=== PATIENT | male | born 1980 | race Caucasian/White ===

== ENCOUNTER 2019-03-30 14:04 | Emergency (ER) | payer MEDICARE, MEDICAID ==
[~2019-03-30] VITALS: Ht 170.2 cm; Wt 98.2 kg
[~2019-03-30 14:04] MED LIST: ARIP5TAB14 PO; ATEN50TA8 PO; FAMO40TA73 PO; LISI40TA4 PO; OLAN5TAB3 PO; QUET300T2 PO
[2019-03-30 14:11] VITALS: BP 124/80
[2019-03-30] MEDS ORDERED: NEOM10DR45 RIGHT EAR (14:46)
== END 2019-03-30 15:09 | disposition home or self-care (01) ==
LOC: ER 14:05
DX: H60.91 Unspecified otitis externa, right ear (principal); F20.9 Schizophrenia, unspecified; F12.90 Cannabis use, unspecified, uncomplicated; Z88.8 Allergy status to other drugs, medicaments and biological substances; Z79.899 Other long term (current) drug therapy; Z98.890 Other specified postprocedural states
CPT/HCPCS: 99283

== ENCOUNTER 2019-11-29 15:12 | Emergency (ER) | payer MEDICARE, MEDICAID ==
[~2019-11-29] VITALS: Ht 167.6 cm; Wt 98.2 kg
[2019-11-29] MEDS ORDERED: propofol 10mg/ml 20ml vial IV ONE ×2 (17:15→17:35)
[2019-11-29] MEDS ORDERED: normal saline 1000ml 1,000 ML IV ONE (17:35)
[2019-11-29] MEDS ORDERED: NAPR-56 PO (18:14)
[2019-11-29 18:30] VITALS: BP 148/84
== END 2019-11-29 18:43 | disposition home or self-care (01) ==
LOC: ER 15:12
DX: S43.004A Unspecified dislocation of right shoulder joint, initial encounter (principal); F20.9 Schizophrenia, unspecified; F12.90 Cannabis use, unspecified, uncomplicated; Z72.89 Other problems related to lifestyle; Z79.899 Other long term (current) drug therapy; Z88.8 Allergy status to other drugs, medicaments and biological substances; Z98.890 Other specified postprocedural states; X58.XXXA Exposure to other specified factors, initial encounter; Y93.89 Activity, other specified; Y92.89 Other specified places as the place of occurrence of the external cause; Y99.8 Other external cause status
CPT/HCPCS: 23650; 73020; 73030; 96374; 99152; 99285; J7030

== ENCOUNTER 2020-10-21 11:45 | Emergency (ER) | payer MEDICARE, MEDICAID ==
[~2020-10-21] VITALS: Ht 167.6 cm; Wt 104.5 kg
[~2020-10-21 11:45] MED LIST changes: +LISI40TA13 PO; -LISI40TA4 PO
[2020-10-21 12:04] VITALS: BP 178/102
--- NOTE | 2020-10-21 14:38 | NUR ---
PATIENT STATES SWELLING TO TOP OF LEFT HAND X 2 DAYS. MODERATE AMOUNT OF EDEMA AND MILD REDNESS NOTED TO TOP OF LEFT HAND. PATIENT DENIES TRAUMA AND STATES THE SWELLING OCCURRED SPONTANEOUSLY.
== END 2020-10-21 16:14 | disposition home or self-care (01) ==
LOC: ER 11:45
DX: R60.0 Localized edema (principal); F12.90 Cannabis use, unspecified, uncomplicated; Z72.89 Other problems related to lifestyle; Z88.8 Allergy status to other drugs, medicaments and biological substances; Z79.899 Other long term (current) drug therapy
CPT/HCPCS: 99283